=== PATIENT | female | born 1980 | race Caucasian/White ===

== ENCOUNTER → 2019-06-04 | Outpatient (CLI) | payer OTHER ==
[2019-06-04 16:56] LABS: FREE T3 1.8 PG/ML (2.2-4.0); FREE T4 1.22 NG/DL (0.76-1.46); THYROID STIMULATING HORMONE 2.45 uIU/ML (0.358-3.740)
== END ==
LOC: M LRY 10:30
PROVIDERS: ATTEND Family Medicine
DX: E06.3 Autoimmune thyroiditis (principal)

== ENCOUNTER → 2019-06-14 | Outpatient (CLI) | payer OTHER ==
--- NOTE | 2019-06-14 13:29 | REP ---
Chest x-ray: Two views. History: Cough fever and chills. No comparison study. Findings: There is an infiltrate in the left lower lobe compatible with pneumonia. There is a linear density in the anterior segment of the right upper lobe indicating plate-like atelectasis. The lung sethi are otherwise clear. Pleural angles are sharp. Heart is not enlarged. No bony abnormalities seen. Impression: Left lower lobe infiltrate consistent with pneumonia. Plate-like atelectasis right upper lobe. Electronically Signed by Tono Ramirez MD 06/14/2019 01:20 P
== END ==
LOC: M LRY 12:50
PROVIDERS: ATTEND Physician Assistant
DX: R05 Cough (principal); R50.9 Fever, unspecified
CPT/HCPCS: 71046; 94640; G0463

== ENCOUNTER → 2019-06-17 | Outpatient (REF) | payer OTHER | LOC: M LAB REF 11:14 | PROVIDERS: ATTEND Physician Assistant | DX: J15.9 Unspecified bacterial pneumonia (principal) ==

== ENCOUNTER → 2019-06-28 | Outpatient (CLI) | payer OTHER ==
--- NOTE | 2019-06-28 09:48 | REP ---
Clinical: Dyspnea. Pneumonia . Comparison: 06/14/2019 . Technique: PA and lateral. Findings: The mediastinum and cardiac silhouette are normal. The lung sethi are clear and without acute consolidation, effusion, or pneumothorax. The previously noted left lower lobe infiltrate has resolved and the plate-like atelectasis at the right base has improved. The skeletal structures are intact and normal. Impression: 1. No acute consolidation. Electronically Signed by Justyn Torres MD 06/28/2019 09:40 A
== END ==
LOC: M LRY 09:07
PROVIDERS: ATTEND Physician Assistant
DX: J15.9 Unspecified bacterial pneumonia (principal)

== ENCOUNTER → 2019-07-30 | Outpatient (CLI) | payer OTHER ==
[2019-07-30 12:43] LABS: FOLLICLE STIMULATING HORMONE 5.1 mIU/mL; FREE T3 3.4 PG/ML (2.2-4.0); FREE T4 1.42 NG/DL (0.76-1.46); LUTEINIZING HORMONE 5.9 mIU/mL; PROGESTERONE 0.25 NG/ML
== END ==
LOC: M LRY 09:37
PROVIDERS: ATTEND Nurse Practitioner Pediatrics
DX: F34.1 Dysthymic disorder (principal); E03.9 Hypothyroidism, unspecified; F90.9 Attention-deficit hyperactivity disorder, unspecified type

== ENCOUNTER → 2019-09-03 | Outpatient (CLI) | payer OTHER ==
[2019-09-03 11:35] LABS: FREE T3 3.5 PG/ML (2.2-4.0); FREE T4 1.68 NG/DL (0.76-1.46)
[2019-09-03 11:36] LABS: TOTAL 25(OH) VITAMIN D 63.4 NG/ML (30.0-100.0)
[2019-09-03 11:37] LABS: THYROGLOBULIN ANTIBODY 82.5 U/ML (<60.0); THYROID PEROXIDASE ANTIBODY 780.5 U/ML (<60.0)
[2019-09-08 00:06] LABS: EBV VIRAL CAPSID AG IgM 53.3 U/mL (0.0-35.9)
== END ==
LOC: M LRY 09:00
PROVIDERS: ATTEND Nurse Practitioner Pediatrics
DX: E03.9 Hypothyroidism, unspecified (principal); F34.1 Dysthymic disorder; F90.9 Attention-deficit hyperactivity disorder, unspecified type

== ENCOUNTER → 2020-04-16 | Outpatient (CLI) | payer OTHER ==
[2020-04-16 17:39] LABS: FREE T3 2.2 PG/ML (2.2-4.0); FREE T4 1.21 NG/DL (0.76-1.46)
[2020-04-17 11:52] LABS: TOTAL 25(OH) VITAMIN D 62.1 NG/ML (30.0-100.0)
[2020-04-17 11:53] LABS: THYROID PEROXIDASE ANTIBODY 727.9 U/ML (<60.0)
[2020-04-17 11:54] LABS: THYROGLOBULIN ANTIBODY 56.1 U/ML (<60.0)
[2020-04-25 06:08] LABS: EBV VIRAL CAPSID AG IgM <36.0 U/mL (0.0-35.9)
== END ==
LOC: M WUC 08:38
PROVIDERS: ATTEND Nurse Practitioner Pediatrics
DX: E28.2 Polycystic ovarian syndrome (principal); E06.3 Autoimmune thyroiditis; E03.9 Hypothyroidism, unspecified; F34.1 Dysthymic disorder; F90.9 Attention-deficit hyperactivity disorder, unspecified type

== ENCOUNTER → 2020-04-16 | Outpatient (CLI) | payer OTHER ==
[2020-04-16 17:55] LABS: ALBUMIN 3.6 GM/DL (3.2-5.2); ALT/SGPT 15 U/L (12-78); BILIRUBIN,TOTAL 0.5 MG/DL (0.2-1.0); BLOOD UREA NITROGEN 10 MG/DL (7-18); CALCIUM LEVEL 8.6 MG/DL (8.5-10.1); CARBON DIOXIDE LEVEL 26 MEQ/L (21-32); CHLORIDE LEVEL 108 MEQ/L (98-107); CREATININE FOR GFR 0.81 MG/DL (0.55-1.30); FREE T4 1.21 NG/DL (0.76-1.46); GLOMERULAR FILTRATION RATE > 60.0 (>60); GLUCOSE, FASTING 91 MG/DL (70-100); POTASSIUM SERUM 4.1 MEQ/L (3.5-5.1); SODIUM LEVEL 141 MEQ/L (136-145); THYROID STIMULATING HORMONE 0.072 uIU/ML (0.358-3.740); TOTAL PROTEIN 6.9 GM/DL (6.4-8.2)
[2020-04-17 11:23] LABS: FOLLICLE STIMULATING HORMONE 5.4 mIU/mL; LUTEINIZING HORMONE 1.8 mIU/mL
[2020-04-19 17:06] LABS: INSULIN LEVEL 5.2 uIU/mL (2.6-24.9); TESTOSTERONE FREE (DIRECT) 1.3 pg/mL (0.0-4.2)
== END ==
LOC: M WUC 08:34
PROVIDERS: ATTEND Family Medicine
DX: E28.2 Polycystic ovarian syndrome (principal); E06.3 Autoimmune thyroiditis

== ENCOUNTER → 2020-08-24 | Outpatient (CLI) | payer OTHER ==
[2020-08-24 12:36] LABS: C REACTIVE PROTEIN QUANTITATIV < 0.30 MG/DL (0.00-0.30); FREE T3 2.5 PG/ML (2.2-4.0); FREE T4 1.31 NG/DL (0.76-1.46); THYROGLOBULIN ANTIBODY 53.5 U/ML (<60.0); THYROID PEROXIDASE ANTIBODY 540.3 U/ML (<60.0); THYROID STIMULATING HORMONE 0.164 uIU/ML (0.358-3.740); TOTAL 25(OH) VITAMIN D 50.6 NG/ML (30.0-100.0)
== END ==
LOC: M WUC 09:53
PROVIDERS: ATTEND Nurse Practitioner Pediatrics
DX: F34.1 Dysthymic disorder (principal); E03.9 Hypothyroidism, unspecified; F90.9 Attention-deficit hyperactivity disorder, unspecified type

== ENCOUNTER → 2020-11-10 | Outpatient (CLI) | payer OTHER ==
[2020-11-10 07:32] LABS: C REACTIVE PROTEIN QUANTITATIV < 0.30 MG/DL (0.00-0.30); FREE T3 2.6 PG/ML (2.2-4.0); FREE T4 0.97 NG/DL (0.76-1.46); THYROID STIMULATING HORMONE 0.066 uIU/ML (0.358-3.740)
[2020-11-10 09:39] LABS: THYROID PEROXIDASE ANTIBODY 684.3 U/ML (<60.0)
== END ==
LOC: M LAB 06:24
PROVIDERS: ATTEND Nurse Practitioner Pediatrics
DX: F34.1 Dysthymic disorder (principal); E03.9 Hypothyroidism, unspecified; F90.9 Attention-deficit hyperactivity disorder, unspecified type; E28.2 Polycystic ovarian syndrome; E06.3 Autoimmune thyroiditis

== ENCOUNTER → 2020-11-10 | Outpatient (CLI) | payer OTHER ==
[2020-11-10 07:15] LABS: HEMOGLOBIN A1c 4.9 %
[2020-11-10 07:30] LABS: FREE T4 0.94 NG/DL (0.76-1.46); THYROID STIMULATING HORMONE 0.065 uIU/ML (0.358-3.740)
[2020-11-10 09:38] LABS: FOLLICLE STIMULATING HORMONE 3.8 mIU/mL; LUTEINIZING HORMONE 6.6 mIU/mL; TOTAL 25(OH) VITAMIN D 73.5 NG/ML (30.0-100.0)
[2020-11-11 18:07] LABS: INSULIN LEVEL 6.4 uIU/mL (2.6-24.9); TESTOSTERONE FREE (DIRECT) 1.6 pg/mL (0.0-4.2)
== END ==
LOC: M LAB 06:22
PROVIDERS: ATTEND Family Medicine
DX: E28.2 Polycystic ovarian syndrome (principal); E06.3 Autoimmune thyroiditis

== ENCOUNTER → 2021-04-11 | Outpatient (CLI) | payer OTHER | LOC: M LAB 16:42 | PROVIDERS: ATTEND Family Medicine | DX: Z11.1 Encounter for screening for respiratory tuberculosis (principal) ==

== ENCOUNTER → 2021-05-08 | Outpatient (CLI) | payer OTHER ==
[2021-05-08 14:47] LABS: FREE T3 2.8 PG/ML (2.2-4.0); FREE T4 0.82 NG/DL (0.76-1.46); THYROID STIMULATING HORMONE 1.13 uIU/ML (0.358-3.740)
[2021-05-08 14:48] LABS: THYROID PEROXIDASE ANTIBODY 641.4 U/ML (<60.0); TOTAL 25(OH) VITAMIN D 49.7 NG/ML (30.0-100.0)
== END ==
LOC: M WUC 09:22
PROVIDERS: ATTEND Nurse Practitioner Pediatrics
DX: F90.0 Attention-deficit hyperactivity disorder, predominantly inattentive type (principal); E07.89 Other specified disorders of thyroid; R53.82 Chronic fatigue, unspecified

== ENCOUNTER → 2021-05-08 | Outpatient (CLI) | payer OTHER ==
[2021-05-08 14:58] LABS: FREE T3 2.6 PG/ML (2.2-4.0); FREE T4 0.81 NG/DL (0.76-1.46); THYROID STIMULATING HORMONE 1.14 uIU/ML (0.358-3.740)
== END ==
LOC: M WUC 09:19
PROVIDERS: ATTEND Physician Assistant
DX: E06.3 Autoimmune thyroiditis (principal)